=== PATIENT | male | born 1975 | race Two or more races ===

== ENCOUNTER 2018-04-18 18:06 | Emergency (ER) | payer MEDICARE, MEDICAID ==
[~2018-04-18] VITALS: Ht 185.4 cm; Wt 88.6 kg
[~2018-04-18 18:06] MED LIST: BENA20TA77 PO; CLON-570 PO; FLUO-191 PO; LAMO100 PO; METF-960 PO; NALT50TA6 PO; OLAN10TA6 PO
[2018-04-18 19:18] LABS: GLUCOSE,POINT OF CARE 128 MG/DL (70-110)
[2018-04-18 19:21] LABS: BASOPHILS % (AUTO) 0.3 % (0.0-2.0); EOSINOPHILS % (AUTO) 3.5 % (1.0-6.0); HEMATOCRIT 46.9 % (41-53); HEMOGLOBIN 16.5 g/dL (13.5-17.5); LYMPHOCYTES # (AUTO) 2.6 K/uL (1.0-4.8); LYMPHOCYTES % (AUTO) 26.3 % (22.0-44.0); MEAN CORPUSCULAR HEMOGLOBIN 29.6 pg (26.0-34.0); MEAN CORPUSCULAR HGB CONC 35.2 G/dL (31.0-37.0); MEAN CORPUSCULAR VOLUME 84 fL (80-100); MONOCYTES # (AUTO) 0.8 K/uL (0.1-1.0); MONOCYTES % (AUTO) 8.2 % (2.0-9.0); NEUTROPHILS % (AUTO) 61.7 % (40.0-70.0); PLATELET COUNT (AUTO) 344 K/uL (150-450); RED BLOOD CELL COUNT(AUTO) 5.57 MIL/uL (4.50-5.90); RED CELL DISTRIBUTION WIDTH 12.7 % (11.5-14.5)
[2018-04-18 19:30] LABS: ANION GAP 13 mmol/L (8-16); CALCIUM, TOTAL 8.6 mg/dL (8.8-10.5); CARBON DIOXIDE 25 mmol/L (22-29); CHLORIDE 100 mmol/L (98-107); GLOMERULAR FILTR. RATE CALC > 60 mL/min (>60); GLUCOSE,RANDOM 129 mg/dL (70-110); POTASSIUM 3.6 mmol/L (3.5-5.1); SODIUM SERUM 138 mmol/L (136-145); UREA NITROGEN, BLOOD 9 mg/dL (7-18)
[2018-04-18 19:35] LABS: ALANINE AMINOTRANSFERASE 62 U/L (12-78); ALBUMIN 3.9 g/dL (3.4-5.0); ALKALINE PHOSPHATASE 94 U/L (46-116); ASPARTATE AMINOTRANSFERASE 35 U/L (15-37); BILIRUBIN,TOTAL 0.6 mg/dL (0.1-1.0); TOTAL PROTEIN, SERUM 7.6 g/dL (6.4-8.2)
[2018-04-18 21:57] VITALS: BP 127/77
== END 2018-04-18 22:15 | disposition home or self-care (01) ==
LOC: EMS 18:14
DX: F25.9 Schizoaffective disorder, unspecified (principal); F31.9 Bipolar disorder, unspecified; I10 Essential (primary) hypertension; E11.9 Type 2 diabetes mellitus without complications; F17.210 Nicotine dependence, cigarettes, uncomplicated; Z79.84 Long term (current) use of oral hypoglycemic drugs
CPT/HCPCS: 36415; 80053; 82962; 85025; 99285; 99406; G0480

== ENCOUNTER 2018-05-07 09:03 | Inpatient (IN) | payer MEDICARE, MEDICAID ==
[~2018-05-07] VITALS: Ht 185.4 cm; Wt 88.0 kg
[2018-05-07] MEDS ORDERED: DiphenhydrAMINE HCL 50 MG/ML VIAL IM ONE (09:30)
[2018-05-07] MEDS ORDERED: HALOPERIDOL LACTATE 5 MG/ML VIAL IM ONE (09:30)
[2018-05-07] MEDS ORDERED: LORazepam 2 MG/ML VIAL IM ONE (09:30)
[2018-05-07 10:30] LABS: BASOPHILS % (AUTO) 0.4 % (0.0-2.0); EOSINOPHILS % (AUTO) 2.7 % (1.0-6.0); HEMATOCRIT 48.4 % (41-53); HEMOGLOBIN 16.8 g/dL (13.5-17.5); LYMPHOCYTES # (AUTO) 2.1 K/uL (1.0-4.8); LYMPHOCYTES % (AUTO) 20.9 % (22.0-44.0); MEAN CORPUSCULAR HEMOGLOBIN 29.9 pg (26.0-34.0); MEAN CORPUSCULAR HGB CONC 34.7 G/dL (31.0-37.0); MEAN CORPUSCULAR VOLUME 86 fL (80-100); MONOCYTES # (AUTO) 0.7 K/uL (0.1-1.0); NEUTROPHILS # (AUTO) 6.8 K/uL (1.8-7.7); PLATELET COUNT (AUTO) 370 K/uL (150-450)
[2018-05-07 10:39] LABS: ANION GAP 8 mmol/L (8-16); CARBON DIOXIDE 28 mmol/L (22-29); CHLORIDE 101 mmol/L (98-107); GLOMERULAR FILTR. RATE CALC > 60 mL/min (>60); GLUCOSE,RANDOM 194 mg/dL (70-110); POTASSIUM 3.9 mmol/L (3.5-5.1); SODIUM SERUM 137 mmol/L (136-145); UREA NITROGEN, BLOOD 8 mg/dL (7-18)
[2018-05-07 10:45] LABS: ALANINE AMINOTRANSFERASE 70 U/L (12-78); ALBUMIN 3.7 g/dL (3.4-5.0); ALKALINE PHOSPHATASE 100 U/L (46-116); ASPARTATE AMINOTRANSFERASE 27 U/L (15-37); BILIRUBIN,TOTAL 0.5 mg/dL (0.1-1.0); TOTAL PROTEIN, SERUM 7.3 g/dL (6.4-8.2)
[2018-05-07] MEDS ORDERED: ZOLPIDEM TARTRATE 10 MG TABLET PO PRN (11:15)
[2018-05-07 14:38] LABS: GLUCOMETER DEV NAME(LOC) BV2N3; GLUCOSE,POINT OF CARE 156 MG/DL (70-110)
[2018-05-07] MEDS ORDERED: GLUCAGON,HUMAN RECOMBINANT 1 MG VIAL IM PRN (15:00)
[2018-05-07 16:32] VITALS: BP 153/65
[2018-05-07] MEDS: CloNIDine HCL 0.1 MG TABLET PO SCH (17:02)
[2018-05-07] MEDS: MetFORMIN HCL 500 MG TABLET PO SCH (17:02)
[2018-05-07 17:08] LABS: GLUCOMETER DEV NAME(LOC) BV2N3; GLUCOSE,POINT OF CARE 140 MG/DL (70-110)
[2018-05-07] MEDS ORDERED: ChlorproMAZINE HCL 100 MG TABLET PO PRN (20:00)
[2018-05-07] MEDS ORDERED: ZOLPIDEM TARTRATE 5 MG TABLET PO PRN (20:00)
[2018-05-07 20:50] VITALS: BP 121/60
[2018-05-07] MEDS: BENAZEPRIL HCL 20 MG TABLET PO SCH (20:52)
[2018-05-07] MEDS: OLANZapine 10 MG TABLET PO SCH (20:59)
[2018-05-08 00:52] VITALS: BP 111/62
[2018-05-08] MEDS ORDERED: PNEUMOCOCCAL VACCINE POLYVALENT 0.5 ML VIAL [PPSV23] IM ONE (01:45)
[2018-05-08 05:59] LABS: GLUCOMETER DEV NAME(LOC) BV2N3; GLUCOSE,POINT OF CARE 199 MG/DL (70-110)
[2018-05-08] MEDS: MetFORMIN HCL 500 MG TABLET PO SCH ×2 (06:03→16:29)
[2018-05-08] MEDS: INSULIN LISPRO 100 UNITS/ML SQ PRN ×2 (07:06→16:31)
[2018-05-08 08:00] VITALS: BP 114/78
[2018-05-08 08:01] LABS: HEMOGLOBIN A1C 6.9 % (4.5-6.2)
[2018-05-08 08:07] LABS: CHOL/HDL RATIO 9.2 (4.2-7.3)
[2018-05-08] MEDS: CloNIDine HCL 0.1 MG TABLET PO SCH ×2 (08:59→16:29)
[2018-05-08] MEDS: BENAZEPRIL HCL 20 MG TABLET PO SCH ×2 (08:59→16:30)
[2018-05-08] MEDS: FLUoxetine HCL 10 MG CAPSULE PO SCH (08:59)
[2018-05-08 16:18] LABS: GLUCOMETER DEV NAME(LOC) BV2N3; GLUCOSE,POINT OF CARE 152 MG/DL (70-110)
[2018-05-08 17:22] VITALS: BP 122/83
[2018-05-08] MEDS: OLANZapine 10 MG TABLET PO SCH (20:34)
[2018-05-09 01:54] VITALS: BP 104/68
[2018-05-09 05:58] LABS: GLUCOMETER DEV NAME(LOC) BV2N3; GLUCOSE,POINT OF CARE 165 MG/DL (70-110)
[2018-05-09] MEDS: MetFORMIN HCL 500 MG TABLET PO SCH ×2 (06:29→16:36)
[2018-05-09] MEDS: INSULIN LISPRO 100 UNITS/ML SQ PRN ×2 (06:40→16:37)
[2018-05-09 08:00] VITALS: BP 124/79
[2018-05-09] MEDS: CloNIDine HCL 0.1 MG TABLET PO SCH ×2 (08:42→16:36)
[2018-05-09] MEDS: FLUoxetine HCL 10 MG CAPSULE PO SCH (08:42)
[2018-05-09] MEDS: OLANZapine 5 MG RAPDIS TABLET PO PRN (08:42)
[2018-05-09] MEDS: BENAZEPRIL HCL 20 MG TABLET PO SCH ×2 (08:42→16:35)
[2018-05-09 16:06] VITALS: BP 142/76
[2018-05-09 16:14] LABS: GLUCOMETER DEV NAME(LOC) BV2N3; GLUCOSE,POINT OF CARE 219 MG/DL (70-110)
[2018-05-09] MEDS: OLANZapine 10 MG TABLET PO SCH (20:33)
[2018-05-09] MEDS: ATORVASTATIN CALCIUM 10 MG TABLET PO SCH (20:33)
[2018-05-10 01:55] VITALS: BP 136/81
[2018-05-10] MEDS: LORazepam 2 MG TABLET PO PRN ×2 (02:12→10:10)
[2018-05-10] MEDS: OLANZapine 5 MG RAPDIS TABLET PO PRN ×2 (02:12→10:10)
[2018-05-10 06:28] LABS: GLUCOMETER DEV NAME(LOC) BV2N3; GLUCOSE,POINT OF CARE 152 MG/DL (70-110)
[2018-05-10] MEDS: MetFORMIN HCL 500 MG TABLET PO SCH ×2 (06:41→16:32)
[2018-05-10] MEDS: INSULIN LISPRO 100 UNITS/ML SQ PRN ×2 (06:43→16:37)
[2018-05-10 08:13] VITALS: BP 120/63
[2018-05-10] MEDS: FLUoxetine HCL 10 MG CAPSULE PO SCH (08:37)
[2018-05-10] MEDS: BENAZEPRIL HCL 20 MG TABLET PO SCH ×2 (08:37→16:32)
[2018-05-10] MEDS: CloNIDine HCL 0.1 MG TABLET PO SCH ×2 (08:37→16:32)
[2018-05-10 16:10] VITALS: BP 118/90
[2018-05-10 16:18] LABS: GLUCOMETER DEV NAME(LOC) BV2N3; GLUCOSE,POINT OF CARE 154 MG/DL (70-110)
[2018-05-10] MEDS: OLANZapine 7.5 MG TABLET PO SCH (20:35)
[2018-05-10] MEDS: ATORVASTATIN CALCIUM 10 MG TABLET PO SCH (20:35)
[2018-05-10] MEDS ORDERED: OLAN7.5T2 PO (23:15)
[2018-05-11 02:00] VITALS: BP 110/68
[2018-05-11] MEDS: LORazepam 2 MG TABLET PO PRN ×2 (02:02→08:27)
[2018-05-11] MEDS: OLANZapine 5 MG RAPDIS TABLET PO PRN (02:02)
[2018-05-11] MEDS: MetFORMIN HCL 500 MG TABLET PO SCH ×2 (06:23→16:33)
[2018-05-11 06:29] LABS: GLUCOMETER DEV NAME(LOC) BV2N3; GLUCOSE,POINT OF CARE 127 MG/DL (70-110)
[2018-05-11 08:00] VITALS: BP 118/82
[2018-05-11] MEDS: CloNIDine HCL 0.1 MG TABLET PO SCH ×2 (08:27→16:33)
[2018-05-11] MEDS: FLUoxetine HCL 10 MG CAPSULE PO SCH (08:27)
[2018-05-11] MEDS: BENAZEPRIL HCL 20 MG TABLET PO SCH ×2 (08:27→16:33)
[2018-05-11] MEDS ORDERED: BISACODYL 5 MG EC TABLET PO PRN (09:45)
[2018-05-11 16:04] VITALS: BP 123/90
[2018-05-11 16:14] LABS: GLUCOMETER DEV NAME(LOC) BV2N3; GLUCOSE,POINT OF CARE 141 MG/DL (70-110)
[2018-05-11] MEDS: INSULIN LISPRO 100 UNITS/ML SQ PRN (16:34)
[2018-05-11] MEDS: ATORVASTATIN CALCIUM 10 MG TABLET PO SCH (20:28)
[2018-05-11] MEDS: OLANZapine 7.5 MG TABLET PO SCH (20:28)
[2018-05-12 02:00] VITALS: BP 120/81
[2018-05-12] MEDS: OLANZapine 5 MG RAPDIS TABLET PO PRN ×2 (02:32→16:17)
[2018-05-12] MEDS: LORazepam 2 MG TABLET PO PRN ×2 (02:32→18:56)
[2018-05-12 06:38] LABS: GLUCOMETER DEV NAME(LOC) BV2N3; GLUCOSE,POINT OF CARE 129 MG/DL (70-110)
[2018-05-12] MEDS: MetFORMIN HCL 500 MG TABLET PO SCH ×2 (06:46→16:17)
[2018-05-12 08:17] VITALS: BP 152/86
[2018-05-12] MEDS: BENAZEPRIL HCL 20 MG TABLET PO SCH ×2 (08:35→16:17)
[2018-05-12] MEDS: FLUoxetine HCL 20 MG CAPSULE PO SCH (08:35)
[2018-05-12] MEDS: CloNIDine HCL 0.1 MG TABLET PO SCH ×2 (08:35→16:17)
[2018-05-12 14:32] VITALS: BP 128/72
[2018-05-12 16:09] VITALS: BP 148/95
[2018-05-12] MEDS: INSULIN LISPRO 100 UNITS/ML SQ PRN (16:17)
[2018-05-12 16:33] LABS: GLUCOMETER DEV NAME(LOC) BV2N3; GLUCOSE,POINT OF CARE 145 MG/DL (70-110)
[2018-05-12 17:13] VITALS: BP 121/75
[2018-05-12] MEDS: OLANZapine 7.5 MG TABLET PO SCH (20:33)
[2018-05-12] MEDS: ATORVASTATIN CALCIUM 10 MG TABLET PO SCH (20:34)
[2018-05-13 03:26] VITALS: BP 118/70
[2018-05-13] MEDS: LORazepam 2 MG TABLET PO PRN ×2 (03:27→14:11)
[2018-05-13] MEDS: OLANZapine 5 MG RAPDIS TABLET PO PRN (03:27)
[2018-05-13 06:29] LABS: GLUCOMETER DEV NAME(LOC) BV2N3; GLUCOSE,POINT OF CARE 164 MG/DL (70-110)
[2018-05-13] MEDS: MetFORMIN HCL 500 MG TABLET PO SCH ×2 (06:47→16:40)
[2018-05-13] MEDS: INSULIN LISPRO 100 UNITS/ML SQ PRN (06:49)
[2018-05-13 08:31] VITALS: BP 121/80
[2018-05-13] MEDS: BENAZEPRIL HCL 20 MG TABLET PO SCH ×2 (09:12→16:40)
[2018-05-13] MEDS: CloNIDine HCL 0.1 MG TABLET PO SCH ×2 (09:12→16:40)
[2018-05-13] MEDS: FLUoxetine HCL 20 MG CAPSULE PO SCH (09:12)
[2018-05-13 16:29] LABS: GLUCOMETER DEV NAME(LOC) BV2N3; GLUCOSE,POINT OF CARE 113 MG/DL (70-110)
[2018-05-13 17:13] VITALS: BP 120/86
[2018-05-13] MEDS: OLANZapine 7.5 MG TABLET PO SCH (20:39)
[2018-05-13] MEDS: ATORVASTATIN CALCIUM 10 MG TABLET PO SCH (20:39)
[2018-05-14] MEDS: OLANZapine 5 MG RAPDIS TABLET PO PRN (02:29)
[2018-05-14 06:12] LABS: GLUCOMETER DEV NAME(LOC) BV2N3; GLUCOSE,POINT OF CARE 112 MG/DL (70-110)
[2018-05-14 06:33] VITALS: BP 122/83
[2018-05-14] MEDS: MetFORMIN HCL 500 MG TABLET PO SCH ×2 (06:51→16:36)
[2018-05-14 08:28] VITALS: BP 142/90
[2018-05-14] MEDS: BENAZEPRIL HCL 20 MG TABLET PO SCH ×2 (09:27→16:36)
[2018-05-14] MEDS: FLUoxetine HCL 20 MG CAPSULE PO SCH (09:28)
[2018-05-14] MEDS: CloNIDine HCL 0.1 MG TABLET PO SCH ×2 (09:28→16:36)
[2018-05-14 16:04] VITALS: BP 121/77
[2018-05-14 16:18] LABS: GLUCOMETER DEV NAME(LOC) BV2N3; GLUCOSE,POINT OF CARE 90 MG/DL (70-110)
[2018-05-14] MEDS: ATORVASTATIN CALCIUM 10 MG TABLET PO SCH (20:44)
[2018-05-14] MEDS: OLANZapine 7.5 MG TABLET PO SCH (20:44)
[2018-05-15 04:30] VITALS: BP 118/72
[2018-05-15] MEDS: OLANZapine 5 MG RAPDIS TABLET PO PRN (04:57)
[2018-05-15] MEDS: LORazepam 2 MG TABLET PO PRN ×2 (04:57→09:11)
[2018-05-15 06:44] LABS: GLUCOMETER DEV NAME(LOC) BV2N3; GLUCOSE,POINT OF CARE 131 MG/DL (70-110)
[2018-05-15] MEDS: MetFORMIN HCL 500 MG TABLET PO SCH ×2 (06:50→17:10)
[2018-05-15] MEDS: FLUoxetine HCL 20 MG CAPSULE PO SCH (08:53)
[2018-05-15] MEDS: BENAZEPRIL HCL 20 MG TABLET PO SCH ×2 (08:53→16:52)
[2018-05-15] MEDS: CloNIDine HCL 0.1 MG TABLET PO SCH ×2 (08:53→16:52)
[2018-05-15 10:06] VITALS: BP 140/90
[2018-05-15 15:18] VITALS: BP 121/90
[2018-05-15 16:30] VITALS: BP 114/69
[2018-05-15 16:48] LABS: GLUCOMETER DEV NAME(LOC) BV2N3; GLUCOSE,POINT OF CARE 134 MG/DL (70-110)
[2018-05-15] MEDS: OLANZapine 7.5 MG TABLET PO SCH (20:52)
[2018-05-15] MEDS: ATORVASTATIN CALCIUM 10 MG TABLET PO SCH (20:53)
[2018-05-16 05:23] VITALS: BP 110/68
[2018-05-16] MEDS: MetFORMIN HCL 500 MG TABLET PO SCH ×2 (06:19→16:33)
[2018-05-16] MEDS: INSULIN LISPRO 100 UNITS/ML SQ PRN ×2 (06:32→16:36)
[2018-05-16] MEDS: OLANZapine 5 MG RAPDIS TABLET PO PRN (06:52)
[2018-05-16] MEDS: LORazepam 2 MG TABLET PO PRN (06:53)
[2018-05-16 06:58] LABS: GLUCOMETER DEV NAME(LOC) BV2N3; GLUCOSE,POINT OF CARE 146 MG/DL (70-110)
[2018-05-16 08:00] VITALS: BP 126/89
[2018-05-16] MEDS: CloNIDine HCL 0.1 MG TABLET PO SCH ×2 (08:13→16:33)
[2018-05-16] MEDS: BENAZEPRIL HCL 20 MG TABLET PO SCH ×2 (08:13→16:33)
[2018-05-16] MEDS: FLUoxetine HCL 20 MG CAPSULE PO SCH (08:13)
[2018-05-16 16:00] VITALS: BP 135/86
[2018-05-16 16:24] LABS: GLUCOMETER DEV NAME(LOC) BV2N3; GLUCOSE,POINT OF CARE 156 MG/DL (70-110)
[2018-05-16] MEDS: ATORVASTATIN CALCIUM 10 MG TABLET PO SCH (20:30)
[2018-05-16] MEDS: OLANZapine 7.5 MG TABLET PO SCH (20:30)
[2018-05-17 03:26] VITALS: BP 139/94
[2018-05-17] MEDS: OLANZapine 5 MG RAPDIS TABLET PO PRN (04:19)
[2018-05-17] MEDS: LORazepam 2 MG TABLET PO PRN (04:19)
[2018-05-17 06:54] LABS: GLUCOMETER DEV NAME(LOC) BV2N3; GLUCOSE,POINT OF CARE 152 MG/DL (70-110)
[2018-05-17] MEDS: MetFORMIN HCL 500 MG TABLET PO SCH ×2 (07:00→16:38)
[2018-05-17] MEDS: INSULIN LISPRO 100 UNITS/ML SQ PRN ×2 (07:07→16:47)
[2018-05-17] MEDS: BENAZEPRIL HCL 20 MG TABLET PO SCH ×2 (09:46→16:38)
[2018-05-17] MEDS: FLUoxetine HCL 20 MG CAPSULE PO SCH (09:46)
[2018-05-17] MEDS: NALTREXONE HCL 50 MG TABLET PO SCH (09:46)
[2018-05-17] MEDS: CloNIDine HCL 0.1 MG TABLET PO SCH ×2 (09:49→16:38)
[2018-05-17 10:43] VITALS: BP 123/87
[2018-05-17 16:19] LABS: GLUCOMETER DEV NAME(LOC) BV2N3; GLUCOSE,POINT OF CARE 270 MG/DL (70-110)
[2018-05-17 17:50] VITALS: BP 120/85
[2018-05-17] MEDS: ATORVASTATIN CALCIUM 10 MG TABLET PO SCH (20:40)
[2018-05-17] MEDS: OLANZapine 10 MG TABLET PO SCH (20:41)
[2018-05-18] MEDS: LORazepam 2 MG TABLET PO PRN (04:30)
[2018-05-18] MEDS: OLANZapine 5 MG RAPDIS TABLET PO PRN (04:30)
[2018-05-18 05:16] VITALS: BP 118/76
[2018-05-18 06:48] LABS: GLUCOMETER DEV NAME(LOC) BV2N3; GLUCOSE,POINT OF CARE 150 MG/DL (70-110)
[2018-05-18] MEDS: MetFORMIN HCL 500 MG TABLET PO SCH ×2 (07:01→16:25)
[2018-05-18] MEDS: INSULIN LISPRO 100 UNITS/ML SQ PRN ×4 (07:17→21:31)
[2018-05-18 08:21] VITALS: BP 143/88
[2018-05-18] MEDS: BENAZEPRIL HCL 20 MG TABLET PO SCH ×2 (08:45→16:25)
[2018-05-18] MEDS: CloNIDine HCL 0.1 MG TABLET PO SCH ×2 (08:45→16:25)
[2018-05-18] MEDS: NALTREXONE HCL 50 MG TABLET PO SCH (08:45)
[2018-05-18] MEDS: FLUoxetine HCL 20 MG CAPSULE PO SCH (08:46)
[2018-05-18 16:11] VITALS: BP 122/76
[2018-05-18 16:44] LABS: GLUCOMETER DEV NAME(LOC) BV2N3; GLUCOSE,POINT OF CARE 144 MG/DL (70-110)
[2018-05-18] MEDS: ATORVASTATIN CALCIUM 10 MG TABLET PO SCH (20:57)
[2018-05-18] MEDS: OLANZapine 10 MG TABLET PO SCH (20:57)
[2018-05-18 21:13] LABS: GLUCOMETER DEV NAME(LOC) BV2N3; GLUCOSE,POINT OF CARE 191 MG/DL (70-110)
[2018-05-19 05:58] LABS: GLUCOMETER DEV NAME(LOC) BV2N3; GLUCOSE,POINT OF CARE 151 MG/DL (70-110)
[2018-05-19 06:32] VITALS: BP 120/86
[2018-05-19] MEDS: INSULIN LISPRO 100 UNITS/ML SQ PRN ×2 (06:47→11:00)
[2018-05-19] MEDS: MetFORMIN HCL 500 MG TABLET PO SCH (06:47)
[2018-05-19 08:00] VITALS: BP 117/81
[2018-05-19] MEDS: CloNIDine HCL 0.1 MG TABLET PO SCH (08:28)
[2018-05-19] MEDS: NALTREXONE HCL 50 MG TABLET PO SCH (08:28)
[2018-05-19] MEDS: BENAZEPRIL HCL 20 MG TABLET PO SCH (08:28)
[2018-05-19] MEDS: FLUoxetine HCL 20 MG CAPSULE PO SCH (08:28)
[2018-05-19] MEDS ORDERED: ATOR10TA84 PO (11:02)
[2018-05-19] MEDS ORDERED: OLAN10TA3 PO (11:03)
[2018-05-19 11:08] LABS: GLUCOMETER DEV NAME(LOC) BV2N3; GLUCOSE,POINT OF CARE 184 MG/DL (70-110)
== END 2018-05-19 13:35 | disposition home or self-care (01) | DRG 885 ==
LOC: EMS 09:06 → B2X 11:40
PROVIDERS: ADMIT Psychiatry & Neurology Psychiatry; ATTEND Psychiatry & Neurology Psychiatry
DX: F25.0 Schizoaffective disorder, bipolar type (principal); F10.231 Alcohol dependence with withdrawal delirium; R45.851 Suicidal ideations; F17.210 Nicotine dependence, cigarettes, uncomplicated; E11.9 Type 2 diabetes mellitus without complications; F43.10 Post-traumatic stress disorder, unspecified; E78.5 Hyperlipidemia, unspecified; K59.00 Constipation, unspecified; I10 Essential (primary) hypertension; Z90.49 Acquired absence of other specified parts of digestive tract; Z28.21 Immunization not carried out because of patient refusal; Z79.84 Long term (current) use of oral hypoglycemic drugs; Z79.899 Other long term (current) drug therapy
CPT/HCPCS: 83036; 87081; 96372; G0480; J1200; J1630; J2060

== ENCOUNTER 2019-03-18 12:57 | Inpatient (IN) | payer MEDICARE, MEDICAID ==
[~2019-03-18] VITALS: Ht 185.4 cm; Wt 73.0 kg
[~2019-03-18 12:57] MED LIST changes: +ATOR10TA84 PO; -LAMO100 PO; +OLAN10TA3 PO; -OLAN10TA6 PO
[2019-03-18] MEDS ORDERED: HALOPERIDOL LACTATE 5 MG/ML VIAL IM ONE (13:15)
[2019-03-18] MEDS ORDERED: LORazepam 2 MG/ML VIAL IM ONE (13:15)
[2019-03-18] MEDS ORDERED: DiphenhydrAMINE HCL 50 MG/ML VIAL IM ONE (13:15)
[2019-03-18 14:10] LABS: GLUCOSE,POINT OF CARE 108 MG/DL (70-110)
[2019-03-18 15:04] LABS: BASOPHILS % (AUTO) 0.6 % (0.0-2.0); EOSINOPHILS % (AUTO) 2.4 % (1.0-6.0); HEMATOCRIT 43.2 % (41-53); HEMOGLOBIN 14.9 g/dL (13.5-17.5); LYMPHOCYTES % (AUTO) 19.6 % (22.0-44.0); MEAN CORPUSCULAR HEMOGLOBIN 29.8 pg (26.0-34.0); MEAN CORPUSCULAR HGB CONC 34.4 G/dL (31.0-37.0); MEAN CORPUSCULAR VOLUME 87 fL (80-100); MONOCYTES # (AUTO) 0.8 K/uL (0.1-1.0); MONOCYTES % (AUTO) 7.5 % (2.0-9.0); NEUTROPHILS # (AUTO) 7.1 K/uL (1.8-7.7); NEUTROPHILS % (AUTO) 69.9 % (40.0-70.0); PLATELET COUNT (AUTO) 377 K/uL (150-450); RED BLOOD CELL COUNT(AUTO) 4.99 MIL/uL (4.50-5.90)
[2019-03-18 15:15] LABS: ANION GAP 11 mmol/L (8-16); CALCIUM, TOTAL 8.8 mg/dL (8.8-10.5); CARBON DIOXIDE 28 mmol/L (22-29); CHLORIDE 103 mmol/L (98-107); CREATININE 1.13 mg/dL (0.60-1.30); GLOMERULAR FILTR. RATE CALC > 60 mL/min (>60); GLUCOSE,RANDOM 131 mg/dL (70-110); POTASSIUM 3.8 mmol/L (3.5-5.1); SODIUM SERUM 142 mmol/L (136-145); UREA NITROGEN, BLOOD 10 mg/dL (7-18)
[2019-03-18 15:20] LABS: ALANINE AMINOTRANSFERASE 21 U/L (12-78); ALBUMIN 3.8 g/dL (3.4-5.0); ALKALINE PHOSPHATASE 92 U/L (46-116); ASPARTATE AMINOTRANSFERASE 21 U/L (15-37); BILIRUBIN,TOTAL 0.2 mg/dL (0.1-1.0); TOTAL PROTEIN, SERUM 6.7 g/dL (6.4-8.2)
[2019-03-18] MEDS ORDERED: ZOLPIDEM TARTRATE 10 MG TABLET PO PRN (19:45)
[2019-03-18] MEDS ORDERED: DEXTROSE 50%-WATER 25 GM/50 ML SYRINGE IVP PRN (22:00)
[2019-03-18 22:09] VITALS: BP 128/78
[2019-03-19] MEDS: LORazepam 2 MG TABLET PO PRN ×2 (01:38→08:52)
[2019-03-19] MEDS: HALOPERIDOL 5 MG TABLET PO PRN ×2 (01:38→08:52)
[2019-03-19] MEDS ORDERED: PNEUMOCOCCAL VACCINE POLYVALENT 0.5 ML VIAL [PPSV23] IM ONE (01:45)
[2019-03-19 06:31] LABS: GLUCOMETER DEV NAME(LOC) 3E.C; GLUCOSE,POINT OF CARE 108 MG/DL (70-110)
[2019-03-19 07:16] LABS: CHOL/HDL RATIO 5.3 (4.2-7.3)
[2019-03-19] MEDS ORDERED: ONDANSETRON HCL 4 MG TABLET PO PRN (08:15)
[2019-03-19] MEDS ORDERED: NICOTINE 14 MG/24 HOUR PATCH TD PRN (08:15)
[2019-03-19] MEDS ORDERED: PETROLATUM,WHITE 28 GM JELLY TP PRN (08:15)
[2019-03-19] MEDS ORDERED: GuaiFENesin/D-METHORPHAN [SUGAR-FREE] 200-20MG/10 ML SYRUP UDCUP PO PRN (08:15)
[2019-03-19] MEDS ORDERED: ACETAMINOPHEN 325 MG TABLET PO PRN (08:15)
[2019-03-19] MEDS ORDERED: DOCUSATE SODIUM 100 MG CAPSULE PO PRN (08:15)
[2019-03-19] MEDS ORDERED: ALBUTEROL SULFATE HFA 90 MCG/PUFF 8 GM INHALER IH PRN (08:15)
[2019-03-19] MEDS ORDERED: MAGNESIUM HYDROXIDE SUSPENSION 30 ML UDCUP PO PRN (08:15)
[2019-03-19] MEDS ORDERED: IBUPROFEN 400 MG TABLET PO PRN (08:15)
[2019-03-19] MEDS ORDERED: LOPERAMIDE HCL 2 MG CAPSULE PO PRN (08:15)
[2019-03-19] MEDS ORDERED: MAG HYDROX/AL HYDROX/SIMETH ES 30 ML SUSPENSION UDCUP PO PRN (08:15)
[2019-03-19] MEDS ORDERED: CloNIDine HCL 0.1 MG TABLET PO PRN (08:15)
[2019-03-19] MEDS: BENAZEPRIL HCL 20 MG TABLET PO SCH ×2 (08:52→17:31)
[2019-03-19 11:36] LABS: GLUCOMETER DEV NAME(LOC) 3E.C; GLUCOSE,POINT OF CARE 154 MG/DL (70-110)
[2019-03-19] MEDS: INSULIN LISPRO 100 UNITS/ML SQ PRN (11:52)
[2019-03-19 16:06] VITALS: BP 96/66
[2019-03-19] MEDS: OLANZapine 10 MG TABLET PO SCH (16:44)
[2019-03-19] MEDS: MetFORMIN HCL 500 MG TABLET PO SCH (16:44)
[2019-03-19 17:01] LABS: GLUCOMETER DEV NAME(LOC) 3E.C; GLUCOSE,POINT OF CARE 100 MG/DL (70-110)
[2019-03-19 17:29] VITALS: BP 148/89
[2019-03-19] MEDS: ATORVASTATIN CALCIUM 10 MG TABLET PO SCH (20:27)
[2019-03-20 00:19] VITALS: BP 136/82
[2019-03-20 06:36] LABS: GLUCOMETER DEV NAME(LOC) 3E.C; GLUCOSE,POINT OF CARE 99 MG/DL (70-110)
[2019-03-20] MEDS: MetFORMIN HCL 500 MG TABLET PO SCH ×2 (06:53→16:10)
[2019-03-20 08:35] VITALS: BP 146/88
[2019-03-20] MEDS: NALTREXONE HCL 50 MG TABLET PO SCH (09:07)
[2019-03-20] MEDS: FLUoxetine HCL 20 MG CAPSULE PO SCH (09:07)
[2019-03-20] MEDS: OLANZapine 10 MG TABLET PO SCH (09:07)
[2019-03-20] MEDS: BENAZEPRIL HCL 20 MG TABLET PO SCH ×2 (09:08→16:10)
[2019-03-20] MEDS: HALOPERIDOL 5 MG TABLET PO PRN (10:32)
[2019-03-20] MEDS: LORazepam 2 MG TABLET PO PRN (10:32)
[2019-03-20 11:36] LABS: GLUCOMETER DEV NAME(LOC) 3E.C; GLUCOSE,POINT OF CARE 118 MG/DL (70-110)
[2019-03-20] MEDS: INSULIN LISPRO 100 UNITS/ML SQ PRN (12:40)
[2019-03-20] MEDS: OLANZapine 7.5 MG TABLET PO SCH (16:10)
[2019-03-20 16:41] LABS: GLUCOMETER DEV NAME(LOC) 3E.C; GLUCOSE,POINT OF CARE 140 MG/DL (70-110)
[2019-03-20] MEDS: ATORVASTATIN CALCIUM 10 MG TABLET PO SCH (20:45)
[2019-03-20 20:51] LABS: GLUCOMETER DEV NAME(LOC) 3E.C; GLUCOSE,POINT OF CARE 112 MG/DL (70-110)
[2019-03-20 21:09] VITALS: BP 125/89
[2019-03-21] MEDS: HALOPERIDOL 5 MG TABLET PO PRN (02:52)
[2019-03-21 02:54] VITALS: BP 138/98
[2019-03-21 06:21] LABS: GLUCOMETER DEV NAME(LOC) 3E.C; GLUCOSE,POINT OF CARE 96 MG/DL (70-110)
[2019-03-21] MEDS: INSULIN LISPRO 100 UNITS/ML SQ PRN (06:35)
[2019-03-21] MEDS: MetFORMIN HCL 500 MG TABLET PO SCH ×2 (07:00→16:21)
[2019-03-21 08:00] VITALS: BP 140/98
[2019-03-21] MEDS: FLUoxetine HCL 20 MG CAPSULE PO SCH (08:13)
[2019-03-21] MEDS: BENAZEPRIL HCL 20 MG TABLET PO SCH ×2 (08:13→16:21)
[2019-03-21] MEDS: NALTREXONE HCL 50 MG TABLET PO SCH (08:13)
[2019-03-21] MEDS: OLANZapine 7.5 MG TABLET PO SCH ×2 (08:13→16:22)
[2019-03-21 11:31] LABS: GLUCOMETER DEV NAME(LOC) 3E.C; GLUCOSE,POINT OF CARE 122 MG/DL (70-110)
== END 2019-03-21 14:45 | disposition home or self-care (01) | DRG 885 ==
LOC: EMS 12:59 → 3EC 19:56
PROVIDERS: ADMIT Psychiatry & Neurology Psychiatry; ATTEND Psychiatry & Neurology Psychiatry
DX: F25.9 Schizoaffective disorder, unspecified (principal); I10 Essential (primary) hypertension; F43.10 Post-traumatic stress disorder, unspecified; E11.9 Type 2 diabetes mellitus without complications; E78.5 Hyperlipidemia, unspecified; F10.10 Alcohol abuse, uncomplicated; F31.9 Bipolar disorder, unspecified; F94.0 Selective mutism; Z91.14 Patient's other noncompliance with medication regimen; Z78.1 Physical restraint status; Z59.0 Homelessness; Z87.891 Personal history of nicotine dependence
CPT/HCPCS: 83036; 99291; G0480; J1200; J1630; J2060

== ENCOUNTER 2020-08-16 19:24 | Emergency (ER) | payer MEDICAID, MEDICARE ==
[~2020-08-16] VITALS: Ht 185.4 cm; Wt 79.1 kg
[~2020-08-16 19:24] MED LIST changes: -CLON-570 PO
[2020-08-16 22:00] VITALS: BP 131/77
[2020-08-16] MEDS ORDERED: OLANZapine 5 MG TABLET PO ONE (22:00)
[2020-08-16] MEDS ORDERED: SULFAMETHOX/TRIMETH DS 800-160 MG/TABLET PO ONE (22:00)
[2020-08-16] MEDS ORDERED: CEPHALEXIN MONOHYDRATE 500 MG CAPSULE PO ONE (22:00)
== END 2020-08-16 22:35 | disposition short-term general hospital (02) ==
LOC: EMS 19:24
DX: F20.9 Schizophrenia, unspecified (principal); L03.116 Cellulitis of left lower limb; E11.9 Type 2 diabetes mellitus without complications; I10 Essential (primary) hypertension; F17.210 Nicotine dependence, cigarettes, uncomplicated; F15.90 Other stimulant use, unspecified, uncomplicated
CPT/HCPCS: 99284

== ENCOUNTER 2025-05-24 00:17 | Emergency (ER) | payer MEDICARE, MEDICAID ==
[~2025-05-24] VITALS: Ht 185.4 cm; Wt 80.0 kg
[~2025-05-24 00:17] MED LIST changes: -ATOR10TA84 PO; -BENA20TA77 PO; -FLUO-191 PO; +LUMA42CA4 PO; -METF-960 PO; -NALT50TA6 PO; -OLAN10TA3 PO; +OLAN10TA74 PO
[2025-05-24 00:49] LABS: COVID AG,FIA SOURCE NASAL SWAB
[2025-05-24 00:52] LABS: PLATELET COUNT (AUTO) 390 K/uL (150-450); RED BLOOD CELL COUNT(AUTO) 5.52 MIL/uL (4.50-5.90); RED CELL DISTRIBUTION WIDTH 13.2 % (11.5-14.5); WHITE BLOOD COUNT (AUTO) 8.3 K/uL (4.5-11.0)
[2025-05-24 00:57] LABS: CALCIUM, TOTAL 8.9 mg/dL (8.8-10.5); CREATININE 1.01 mg/dL (0.60-1.30); GLOMERULAR FILTR. RATE CALC > 60 mL/min (>60); GLUCOSE,RANDOM 140 mg/dL (70-110); SODIUM SERUM 140 mmol/L (136-145); UREA NITROGEN, BLOOD 10 mg/dL (7-18)
[2025-05-24 01:05] LABS: SARS-COV2 (COVID) ANTIGEN,FIA Negative (Negative)
[2025-05-24 01:10] LABS: ALCOHOL, URINE DRUG SCREEN NEGATIVE (NEGATIVE); AMPHET/METH SCREEN,URINE NEGATIVE (NEGATIVE); BARBITURATE SCREEN, URINE NEGATIVE (NEGATIVE); CANNABINOID SCREEN,URINE NEGATIVE (NEGATIVE); COCAINE SCREEN,URINE NEGATIVE (NEGATIVE); METHADONE SCREEN, URINE NEGATIVE (NEGATIVE)
[2025-05-24 01:23] LABS: APPEARANCE,URINE CLEAR (CLEAR); GLUCOSE, URINE (UA) NEGATIVE (NEGATIVE); LEUKOCYTE ESTERASE ,URINE NEGATIVE (NEGATIVE); NITRATE,URINE NEGATIVE (NEGATIVE); OCCULT BLOOD,URINE NEGATIVE (NEGATIVE); PH,URINE DRUG SCREEN 6.0 (5.0-8.0); SPECIFIC GRAVITIY, URINE 1.012 (1.003-1.030)
[2025-05-24] MEDS: NICOTINE 14 MG/24 HOUR PATCH TD ONE (02:23)
[2025-05-24 09:55] VITALS: BP 159/97; PULSE 98; RESP 18; O2SAT 99
== END 2025-05-24 10:43 | disposition home or self-care (01) ==
LOC: EMS 00:45
DX: F20.9 Schizophrenia, unspecified (principal); F41.9 Anxiety disorder, unspecified; F32.A Depression, unspecified; I10 Essential (primary) hypertension; Z00.8 Encounter for other general examination; F12.90 Cannabis use, unspecified, uncomplicated; F17.210 Nicotine dependence, cigarettes, uncomplicated; Z59.00 Homelessness unspecified; Z79.899 Other long term (current) drug therapy; Z20.822 Contact with and (suspected) exposure to COVID-19
CPT/HCPCS: 99284; 87426; 80048; 81003; 82962; 85025; 36415; 80307; G0480

== ENCOUNTER 2025-06-03 20:56 | Emergency (ER) | payer MEDICARE, MEDICAID ==
[~2025-06-03] VITALS: Ht 185.4 cm; Wt 75.0 kg
[2025-06-03 21:01] VITALS: TEMP 97.5
[2025-06-04 01:30] VITALS: BP 133/69; PULSE 71; RESP 16; O2SAT 99
== END 2025-06-04 02:33 | disposition home or self-care (01) ==
LOC: EMS 20:56
DX: F20.9 Schizophrenia, unspecified (principal); I10 Essential (primary) hypertension; F31.9 Bipolar disorder, unspecified; F12.90 Cannabis use, unspecified, uncomplicated; F17.210 Nicotine dependence, cigarettes, uncomplicated; Z76.0 Encounter for issue of repeat prescription; Z79.899 Other long term (current) drug therapy; Z59.00 Homelessness unspecified
CPT/HCPCS: 99283